=== PATIENT | female | born 1995 | race Caucasian/White ===

== ENCOUNTER 2018-07-03 10:05 | Outpatient (CLI) | payer OTHER ==
[~2018-07-03] VITALS: Ht 172.7 cm; Wt 82.7 kg
--- NOTE | 2018-07-03 10:15 | NUR ---
Pt arrives on unit ambulatory. States increase of cramping last night and body aches with migraine, but denies cramping this morning. Denies leaking of fluid, vaginal bleeding, regular contractions and reports good movement. Changed into clean gown. EFM and toco applied. VSS. Admission assessment completed. SVE per this RN /-3. Dr. Biswas notified of pt status. Orders for 1g of Tylenol PO, CBC, UA, influenza swab and oral hydration. Pt updated on POC. No questions or concerns at this time.
[2018-07-03] MEDS ORDERED: PRENATAL MVI (10:26)
[2018-07-03 10:59] LABS: COLLECTION METHOD CLEAN CATCH
[2018-07-03 11:00] VITALS: BP 121/67; PULSE 85; TEMP 98.1
[2018-07-03 11:02] LABS: HEMOGLOBIN 11.7 g/dl (12.5-16.0); MEAN CELL VOLUME 92 fl (80.0-100.0); MEAN CORPUSCULAR HEMOGLOBIN 31 pg (27.0-31.0); MEAN CORPUSCULAR HGB CONC 34 g/dl (33.0-37.0); PLATELET COUNT 263 K/mm3 (130-400); RED BLOOD COUNT 3.77 M/mm3 (4.10-5.30); REDCELL DISTRIBUTION WIDTH-CV 13.2 % (11.5-14.5)
[2018-07-03 11:03] LABS: HEMATOCRIT 34.6 % (37.0-47.0)
[2018-07-03 11:06] LABS: MUCOUS Present /lpf; PH 7 (5-8); SQUAMOUS EPITHELIAL 0-2 /hpf; URINE APPEARANCE Cloudy; URINE BACTERIA Rare /hpf; URINE BILIRUBIN Negative (NEGATIVE); URINE BLOOD Negative (NEGATIVE); URINE COLOR Yellow; URINE GLUCOSE Negative (NEGATIVE); URINE KETONE Negative (NEGATIVE); URINE LEUKOCYTE ESTERASE 2+ (NEGATIVE); URINE NITRATE Positive (NEGATIVE); URINE PROTEIN(semi-quant) Negative (NEGATIVE); URINE RBC 0-2 /hpf; URINE UROBILINOGEN Negative (NEGATIVE)
--- NOTE | 2018-07-03 11:31 | NUR ---
Lab results indicated UTI infection. Orders per Dr. Biswas macrobid 100mg BID. Ok to depart home. Pt taken off monitors. Discharge instructions given. No questions or concerns at this time. Leaves unit ambulatory with family.
[2018-07-03 13:03] LABS: BAND 4 % (0-10); LYMPHOCYTE 18 % (20.0-51.0); NEUTROPHILS 72 % (42.0-75.2); PLATELET ESTIMATE NORMAL (NORMAL)
== END 2018-07-03 11:45 | disposition home or self-care (01) ==
LOC: LDRO 10:05
PROVIDERS: Obstetrics & Gynecology
DX: O26.892 Other specified pregnancy related conditions, second trimester (principal); R25.2 Cramp and spasm; Z3A.27 27 weeks gestation of pregnancy

== ENCOUNTER 2018-10-05 07:07 | Inpatient (IN) | payer OTHER ==
[2018-10-05] VITALS (56 sets, daily range): BP systolic 107–152; BP diastolic 52–92; PULSE 53–121; TEMP 97.6–98.7
[~2018-10-05] VITALS: Ht 172.7 cm; Wt 94.1 kg
[~2018-10-05 07:07] MED LIST: PRENATAL MVI
--- NOTE | 2018-10-05 07:10 | NUR ---
Patient arrives ambulatory with FOB for scheduled induction of labor. Patient reports occasional contractions, denies ROM or vaginal bleeding, and reports normal movement. Changes into gown, EFM explained and placed. VSS. Patient updated on plan of care and plan for induction reviewed. Patient denies questions. Assessment completed. 0730- IV started in RFA, labs obtained. LR infusing per protocol. Consents explained and signed. Denies questions. 0755- SVE unchanged from office. Pitocin administration reviewed with patient, agrees and denies questions. Reactive FHR strip obtained. 0800- Pitocin started at 8 mU per protocol and order. Will monitor per protocol. Call light in reach.
[2018-10-05] MEDS ORDERED: GARLIC100 MG PO (07:54)
[2018-10-05] MEDS ORDERED: VTAMINC250TA (07:54)
[2018-10-05] MEDS ORDERED: FLAGYL500 MG PO (07:55)
--- NOTE | 2018-10-05 08:30 | NUR ---
Dr. Erwin at bedside. Reviews FHR strip. Vertex presentation confirmed via bedside sonogram. Discussed plan of care to continue induction and physician will come assess over lunch break.
[2018-10-05 08:42] LABS: BASO # 0.1 (0.0-0.2); BASO % 0.5 % (0.0-2.0); EOS # 0.2 (0.0-0.7); EOS % 0.8 % (0-4.0); GRAN # 14.8 (1.4-6.5); HEMOGLOBIN 11.7 g/dl (12.5-16.0); LYMPH # 2.1 (1.2-3.4); LYMPH % 11.3 % (20.0-51.0); MEAN CELL VOLUME 88 fl (80.0-100.0); MEAN CORPUSCULAR HEMOGLOBIN 28 pg (27.0-31.0); MEAN CORPUSCULAR HGB CONC 32 g/dl (33.0-37.0); MONO # 0.7 (0.1-0.6); MONO % 3.9 % (1.7-9.3); PLATELET COUNT 289 K/mm3 (130-400); RED BLOOD COUNT 4.14 M/mm3 (4.10-5.30); REDCELL DISTRIBUTION WIDTH-CV 14.3 % (11.5-14.5)
[2018-10-05 08:45] LABS: HEMATOCRIT 36.4 % (37.0-47.0)
--- NOTE | 2018-10-05 10:50 | NUR ---
Patient standing at the bedside. RN at bedside adjusting toco.
--- NOTE | 2018-10-05 13:10 | NUR ---
1310- Patient assisted to sit on edge of bed for epidural placement. Magali Cameron CRNA at bedside. Difficulty tracing FHR strip continuously due to maternal position and movement. 1319- Single shot via epidural given by Magali Cameron CRNA. Patient tolerates well, no adverse reaction noted. See anesthesia record. 1322- Patient repositioned WL following epidural. Updated on plan of care and safety.
--- NOTE | 2018-10-05 15:35 | NUR ---
1540- Patient repositioned LL with peanut ball in place following SVE and pericare.
--- NOTE | 2018-10-05 18:15 | NUR ---
Bedside report received from DANIELLA Tucker. Pt states she is feeling pressure with contractions but denies pain. Plan of care explained to pt and family who verbalize understanding. 183: Instructions on pushing with contractions explained to pt who verbalizes understanding. Questions answered. at bedside and reviews FHR strip. Raphael removed and pt begins pushing with this RN. Pt moves vertex well. to stay at nurses station. 1849: Pt states she is starting to get dizzy with pushing. Fan turned on and oxygen applied at 10L via oxymask. Pt continues pushing with contractions. 1857: at nurse's station and requested for delviery. Pt assisted into footplates. 1899: Pt begins pushing with . reviewing FHR strip. 1903: Spontaneous vaginal delivery of viable female by . Pitocin stopped and to mothers chest where dried and stimulated. Delayed cord clamping requested. Care of assumed by Meliza BREWER. Cord clamped X2 after pulsating is complete. Cut by FOB. 1908: Spontaneous delivery of intact placenta by . Pitocin restarted at 333mus/hr per protocol. Lidocaine 1% administered vaginal by due to some vaginal tenderness. Second degree laceration repaired by . Fundal message performed, fundus firm, midline and bleeding minimal. Pericare provided, pads changed and ice pack applied. Pt repositioned in bed and plan of care and safety precautions explained to pt and family who verbalize understanding. Call light within reach. See doctor dications and ansesthsia records.
[2018-10-06 03:00] VITALS: BP 109/55; PULSE 97; TEMP 98.9
[2018-10-06 07:09] LABS: HEMATOCRIT 30.7 % (37.0-47.0); HEMOGLOBIN 9.9 g/dl (12.5-16.0)
[2018-10-06 07:50] VITALS: BP 118/69; PULSE 92; TEMP 98.7
[2018-10-06] MEDS ORDERED: PERCOCET 325 MG1 TA2 PO (08:02)
[2018-10-06] MEDS ORDERED: IBU600 MG PO (08:02)
--- NOTE | 2018-10-06 09:51 | NUR ---
Initial visit; Mom and family thanked School Speech Therapist for offering congratulations and God's blessings for the of their baby girl. School Speech Therapist thanked Mom for choosing [facility].
[2018-10-06 16:45] VITALS: BP 117/62; PULSE 92; TEMP 97
[2018-10-06 20:25] VITALS: BP 121/61; PULSE 90; TEMP 97.7
[2018-10-07 07:15] VITALS: BP 112/67; PULSE 103; TEMP 98.1
== END 2018-10-07 11:30 | disposition home or self-care (01) | DRG 806 ==
LOC: OB 07:07 → LDR 07:07 → OB 23:00
PROVIDERS: ADMIT Obstetrics & Gynecology
PROC: 10E0XZZ Delivery of Products of Conception, External Approach (ICD-10-PCS; principal; 2018-10-05)
PROC: 0KQM0ZZ Repair Perineum Muscle, Open Approach (ICD-10-PCS; 2018-10-05)
DX: O48.0 Post-term pregnancy (principal); D62 Acute posthemorrhagic anemia; Z37.0 Single live birth; Z3A.40 40 weeks gestation of pregnancy; O70.1 Second degree perineal laceration during delivery; O90.81 Anemia of the puerperium
CPT/HCPCS: J2590; J2795; J7120

== ENCOUNTER 2019-08-15 10:54 | Emergency (ER) | payer SELFPAY ==
[~2019-08-15] VITALS: Ht 170.2 cm; Wt 70.5 kg
[~2019-08-15 10:54] MED LIST changes: +FLAGYL500 MG PO; +GARLIC100 MG PO; +IBU600 MG PO; +PERCOCET 325 MG1 TA2 PO; +VTAMINC250TA
[2019-08-15 10:59] VITALS: BP 113/74; TEMP 98.5
[2019-08-15] MEDS ORDERED: GENTAMICIN EYE D5 ML OD ×2 (11:18)
[2019-08-15 11:27] VITALS: PULSE 96
== END 2019-08-15 11:25 | disposition home or self-care (01) ==
LOC: COL.ER 10:54
DX: S05.01XA Injury of conjunctiva and corneal abrasion without foreign body, right eye, initial encounter (principal); X58.XXXA Exposure to other specified factors, initial encounter

== ENCOUNTER 2021-08-03 07:22 | Emergency (ER) | payer SELFPAY ==
[~2021-08-03] VITALS: Ht 170.2 cm; Wt 70.9 kg
[~2021-08-03 07:22] MED LIST changes: +GENTAMICIN EYE D5 ML OD
[2021-08-03 07:28] VITALS: TEMP 98.4
[2021-08-03 07:49] LABS: COLLECTION METHOD CLEAN CATCH
[2021-08-03 08:16] LABS: BASO # 0.1 K/mm3 (0.0-0.2); EOS # 0.1 K/mm3 (0.0-0.7); EOS % 1.1 % (0.0-4.0); GRAN # 8.1 K/mm3 (1.4-6.5); GRAN % 75.4 % (42.2-75.2); HEMATOCRIT 38.8 % (37.0-47.0); HEMOGLOBIN 13.1 g/dl (12.5-16.0); LYMPH # 1.8 K/mm3 (1.2-3.4); LYMPH % 16.7 % (20.0-51.0); MEAN CELL VOLUME 88 fl (80.0-100.0); MEAN CORPUSCULAR HEMOGLOBIN 30 pg (27-31); MEAN CORPUSCULAR HGB CONC 34 g/dl (33.0-37.0); MEAN PLATELET VOLUME 10.6 fl (7.4-10.4); MONO # 0.6 K/mm3 (0.1-0.6); MONO % 5.2 % (1.7-9.3); PLATELET COUNT 268 K/mm3 (130-400); RED BLOOD COUNT 4.39 M/mm3 (4.10-5.30); REDCELL DISTRIBUTION WIDTH-CV 12.3 % (11.5-14.5)
[2021-08-03 08:16] LABS: MUCOUS Present (NOT PRESENT); PH 6 (5-8); URINE APPEARANCE Cloudy (CLEAR/HAZY); URINE BACTERIA Rare /hpf (NONE SEEN); URINE BILIRUBIN Negative (NEGATIVE); URINE BLOOD Negative (NEGATIVE); URINE COLOR Yellow (YELLOW); URINE GLUCOSE Negative (NEGATIVE); URINE KETONE Negative (NEGATIVE); URINE LEUKOCYTE ESTERASE 2+ (NEGATIVE); URINE NITRATE Positive (NEGATIVE); URINE PROTEIN(semi-quant) Negative (NEGATIVE); URINE RBC 0-2 /hpf (0-2); URINE UROBILINOGEN Negative (NEGATIVE)
[2021-08-03 08:33] LABS: ALBUMIN 3.8 gm/dL (3.5-5.0); BILIRUBIN,TOTAL 0.5 mg/dL (0.2-1.2); CALCIUM 8.6 mg/dL (8.4-10.2); CREATININE, serum 0.67 mg/dL (0.57-1.11)
[2021-08-03] MEDS ORDERED: CEPHALEXIN500 M1 PO (09:06)
[2021-08-03 09:21] VITALS: BP 121/77; PULSE 84
== END 2021-08-03 09:21 | disposition home or self-care (01) ==
LOC: COL.ER 07:22
PROVIDERS: Personal Emergency Response Attendant
DX: N39.0 Urinary tract infection, site not specified (principal)
CPT/HCPCS: J7030